=== PATIENT | male | born 1960 | race Caucasian/White ===

== ENCOUNTER 2017-04-29 07:09 | Inpatient (IN) | payer OTHER ==
[~2017-04-29] VITALS: Ht 188 cm; Wt 94.0 kg
[2017-04-29] MEDS ORDERED: SODIUM CHLORIDE 0.9% 1,000ML IVBOLUS ONE ×2 (08:00→12:00)
[2017-04-29] MEDS ORDERED: SODIUM CHLORIDE FLUSH 10ML SYR IVF ONE (08:00)
[2017-04-29] MEDS ORDERED: ONDANSETRON 2MG/ML, 2ML IVPush ONE (08:00)
[2017-04-29] MEDS ORDERED: ONDANSETRON 2MG/ML, 2ML ONE (08:15)
[2017-04-29] MEDS ORDERED: HYDROmorphone 1 MG/ML, 1ML ONE ×3 (08:15→10:36)
[2017-04-29] MEDS: HYDROmorphone 1 MG/ML, 1ML IVPush PRN ×2 (08:22→08:49)
[2017-04-29 08:30] LABS: ASPARTATE AMINO TRANSFERASE 12 U/L (15-37); BLOOD UREA NITROGEN 32 mg/dL (7-18)
[2017-04-29 08:37] LABS: DIFF TOTAL CELLS COUNTED 100 CELL DIFF
[2017-04-29 08:39] LABS: VERIFY COUNTS? YES
[2017-04-29] MEDS ORDERED: HYDROmorphone 1 MG/ML, 1ML IV ONE (11:00)
[2017-04-29] MEDS ORDERED: OMNIPAQUE 350 MG/ML, 100ML BOTTLE ONE (11:01)
[2017-04-29] MEDS ORDERED: INSU100C SQ-INSULIN ×2 (11:38)
[2017-04-29] MEDS ORDERED: CHOL400T2 PO (11:38)
[2017-04-29] MEDS ORDERED: HYDR25TA6 PO (11:38)
[2017-04-29] MEDS ORDERED: LOSA100T6 PO (11:38)
[2017-04-29] MEDS ORDERED: EMPA25TA PO (11:38)
[2017-04-29] MEDS ORDERED: INSU100I32 SQ (11:38)
[2017-04-29] MEDS ORDERED: ROSU20TA PO (11:38)
[2017-04-29] MEDS ORDERED: PIPERACILLIN/TAZO/PMX 4.5GM 100 ML IVPB ONE (12:00)
[2017-04-29] MEDS ORDERED: VANCOMYCIN PER PHARMACY MC ONE (12:00)
[2017-04-29] MEDS ORDERED: VANCOMYCIN 2,000 MG in SODIUM CHLORIDE 0.9% 500 ML IV ONE (12:30)
[2017-04-29] MEDS ORDERED: SODIUM CHLORIDE 0.9% 1,000 ML IV SCH (12:41)
[2017-04-29] MEDS ORDERED: morphine SULFATE 10 MG/ML, 1ML IVPush PRN (13:00)
[2017-04-29] MEDS ORDERED: ONDANSETRON 2MG/ML, 2ML IVPush PRN ×2 (13:00→13:51)
[2017-04-29] MEDS ORDERED: PROMETHAZINE 25 MG/ML, 1ML IM PRN (13:00)
[2017-04-29] MEDS: INSULIN ASPART 100 UNITS/ML, PEN SQ-INSULIN SCH ×3 (13:00→21:36)
[2017-04-29] MEDS ORDERED: PHARMACY MAY ADJ FOR RENAL FX MC PRN (13:00)
[2017-04-29 13:10] VITALS: BP 101/57
[2017-04-29] MEDS ORDERED: ERTAPENEM 1 GM in SODIUM CHLORIDE 0.9% 50 ML IV SCH (13:30)
[2017-04-29] MEDS ORDERED: LIDOCAINE 2%, 20ML ONE (13:47)
[2017-04-29] MEDS: SODIUM CHLORIDE 0.45% 1,000 ML IV SCH ×2 (14:00→15:37)
[2017-04-29] MEDS ORDERED: MIDAZOLAM 1 MG/ML, 5ML ONE (14:01)
[2017-04-29] MEDS ORDERED: NALOXONE 1 MG/ML, 2ML ONE (14:02)
[2017-04-29] MEDS ORDERED: FENTANYL PF 100 MCG/2ML ONE (14:02)
[2017-04-29] MEDS ORDERED: FLUMAZENIL 0.1 MG/1 ML, 5ML ONE (14:02)
[2017-04-29] MEDS: morphine SULFATE 10 MG/ML, 1ML IVPush PRN (18:23)
[2017-04-29 20:30] VITALS: BP 101/55
[2017-04-29] MEDS ORDERED: INSULIN DETEMIR 100 UNITS/ML, PEN SQ-INSULIN SCH (21:00)
[2017-04-29] MEDS: PIPERACILLIN/TAZO 3.375 GM in SODIUM CHLORIDE 0.9% 100 ML IV SCH (21:09)
[2017-04-29] MEDS: D5%-0.45NACL+KCL 20MEQ 1,000 ML IV SCH (21:11)
[2017-04-30] MEDS: PIPERACILLIN/TAZO 3.375 GM in SODIUM CHLORIDE 0.9% 100 ML IV SCH ×2 (01:50→07:30)
[2017-04-30] MEDS: OXYcodone/APAP 7.5/325MG TABLET PO PRN ×2 (01:53→05:52)
[2017-04-30 02:35] VITALS: BP 101/57
[2017-04-30 05:10] LABS: ASPARTATE AMINO TRANSFERASE 15 U/L (15-37); BLOOD UREA NITROGEN 40 mg/dL (7-18)
[2017-04-30] MEDS: D5%-0.45NACL+KCL 20MEQ 1,000 ML IV SCH (05:52)
[2017-04-30] MEDS: SODIUM CHLORIDE 0.45% 1,000 ML IV SCH ×3 (05:57→14:43)
[2017-04-30] MEDS: INSULIN ASPART 100 UNITS/ML, PEN SQ-INSULIN SCH ×5 (07:41→21:00)
[2017-04-30] MEDS: INSULIN DETEMIR 100 UNITS/ML, PEN SQ-INSULIN SCH ×2 (08:22→21:03)
[2017-04-30 08:24] VITALS: BP 100/64
[2017-04-30] MEDS ORDERED: ERTAPENEM 1 GM in SODIUM CHLORIDE 0.9% 100 ML IV SCH (11:00)
[2017-04-30] MEDS ORDERED: ERTAPENEM 1 GM in SODIUM CHLORIDE 0.9% 50 ML IV SCH (12:00)
[2017-04-30 12:17] LABS: BLOOD UREA NITROGEN 42 mg/dL (7-18)
[2017-04-30] MEDS ORDERED: SODIUM CHLORIDE 0.45% 1,000 ML IV SCH (14:00)
[2017-04-30 14:51] VITALS: BP 104/51
[2017-04-30 15:37] VITALS: BP 93/50
[2017-04-30] MEDS ORDERED: SODIUM CHLORIDE 0.9% 1,000ML IVBOLUS ONE ×2 (16:00→18:30)
[2017-04-30 19:35] VITALS: BP 109/59
[2017-04-30 23:58] VITALS: BP 125/68
[2017-05-01] MEDS: HEPARIN 5,000 UNITS/ML, 1ML SQ SCH ×4 (00:13→22:00)
[2017-05-01] MEDS: SODIUM CHLORIDE 0.45% 1,000 ML IV SCH ×3 (00:14→11:51)
[2017-05-01 04:02] VITALS: BP 121/71
[2017-05-01 06:35] LABS: BLOOD UREA NITROGEN 44 mg/dL (7-18)
[2017-05-01] MEDS: INSULIN ASPART 100 UNITS/ML, PEN SQ-INSULIN SCH ×5 (06:35→21:39)
[2017-05-01 06:51] LABS: ASPARTATE AMINO TRANSFERASE 26 U/L (15-37)
[2017-05-01 07:57] VITALS: BP 137/70
[2017-05-01] MEDS: morphine SULFATE 10 MG/ML, 1ML IVPush PRN ×2 (08:04→17:19)
[2017-05-01] MEDS: INSULIN DETEMIR 100 UNITS/ML, PEN SQ-INSULIN SCH ×2 (09:00→21:33)
[2017-05-01] MEDS ORDERED: ERTAPENEM 0.5 GM in SODIUM CHLORIDE 0.9% 100 ML IV SCH (11:12)
[2017-05-01 12:14] LABS: BLOOD UREA NITROGEN 47 mg/dL (7-18)
[2017-05-01] MEDS ORDERED: PIPERACILLIN/TAZO 2.25 GM in SODIUM CHLORIDE 0.9% 50 ML IV SCH (12:30)
[2017-05-01] MEDS ORDERED: PIPERACILLIN/TAZO 0.75 GM in SODIUM CHLORIDE 0.9% 50 ML IV SCH (12:30)
[2017-05-01 12:45] VITALS: BP 129/66
[2017-05-01] MEDS ORDERED: BUPIVACAINE/PF-EPI 0.5% 1:200K ONE ×2 (13:43→15:27)
[2017-05-01] MEDS ORDERED: HEPARIN 1,000 UNITS/ML, 10ML ONE (13:43)
[2017-05-01] MEDS ORDERED: MIDAZOLAM 1 MG/ML, 2ML ONE (13:57)
[2017-05-01] MEDS ORDERED: FENTANYL PF 250 MCG/5ML ONE (13:57)
[2017-05-01] MEDS ORDERED: ROCURONIUM 10 MG/ML ONE (14:08)
[2017-05-01] MEDS ORDERED: PROPOFOL 10 MG/ML, 20ML ONE (14:08)
[2017-05-01] MEDS ORDERED: GLYCOPYRROLATE 0.2MG/1ML ONE (14:08)
[2017-05-01] MEDS ORDERED: NEOSTIGMINE 1 MG/ML, 10ML ONE (14:08)
[2017-05-01] MEDS ORDERED: ONDANSETRON 2MG/ML, 2ML ONE (14:08)
[2017-05-01] MEDS ORDERED: HYDROmorphone 1 MG/ML, 1ML ONE (14:57)
[2017-05-01] MEDS ORDERED: BACITRACIN 50,000 UNIT ONE (15:11)
[2017-05-01] MEDS ORDERED: MIDAZOLAM 1 MG/ML, 2ML IV PRN (16:00)
[2017-05-01] MEDS ORDERED: EPHEDRINE 50 MG/ML, 1ML IVPush PRN (16:00)
[2017-05-01] MEDS ORDERED: FENTANYL PF 100 MCG/2ML IV PRN (16:00)
[2017-05-01] MEDS ORDERED: HYDROmorphone 1 MG/ML, 1ML IV PRN (16:00)
[2017-05-01] MEDS ORDERED: ONDANSETRON 2MG/ML, 2ML IVPush PRN (16:00)
[2017-05-01] MEDS ORDERED: OXYcodone 5 MG/5 ML ORAL.SOL UDC PO PRN (16:00)
[2017-05-01] MEDS ORDERED: BUPIVACAINE/PF-EPI 0.5% 1:200K INFIL ONE (16:28)
[2017-05-01] MEDS ORDERED: BACITRACIN 50,000 UNIT IRRIG ONE (16:29)
[2017-05-01] MEDS ORDERED: ENOXAPARIN 30 MG/0.3 ML SQ SCH (18:00)
[2017-05-01] MEDS: D5%-0.45% NACL 1,000 ML IV SCH (18:09)
[2017-05-01] MEDS ORDERED: LORazepam 2 MG/ML, 1ML IV PRN ×2 (18:30)
[2017-05-01] MEDS ORDERED: D5%-0.45% NACL 1,000 ML IV SCH (18:30)
[2017-05-01] MEDS ORDERED: morphine SULFATE 10 MG/ML, 1ML IV PRN (18:30)
[2017-05-01] MEDS ORDERED: LORazepam 1MG TABLET PO PRN (18:30)
[2017-05-01] MEDS ORDERED: ACETAMINOPHEN 650 MG SUPP PR PRN (21:00)
[2017-05-01] MEDS: PIPERACILLIN/TAZO/PMX 2.25GM 50 ML IV SCH ×2 (21:37→23:12)
[2017-05-01] MEDS: FLUCONAZOLE 400 MG/200 ML 200 ML IV SCH (21:37)
[2017-05-02] MEDS: D5%-0.45% NACL 1,000 ML IV SCH (04:07)
[2017-05-02 04:48] LABS: BLOOD UREA NITROGEN 55 mg/dL (7-18)
[2017-05-02 04:54] LABS: TOTAL IRON BINDING CAPACITY 145 mcg/dL (250-450)
[2017-05-02 04:55] LABS: ASPARTATE AMINO TRANSFERASE 16 U/L (15-37)
[2017-05-02 05:00] VITALS: BP 122/60
[2017-05-02 05:37] LABS: DIFF TOTAL CELLS COUNTED 100 CELL DIFF
[2017-05-02 05:39] LABS: VERIFY COUNTS? YES
[2017-05-02] MEDS: PIPERACILLIN/TAZO/PMX 2.25GM 50 ML IV SCH ×3 (05:42→17:45)
[2017-05-02] MEDS: HEPARIN 5,000 UNITS/ML, 1ML SQ SCH (06:11)
[2017-05-02] MEDS: INSULIN ASPART 100 UNITS/ML, PEN SQ-INSULIN SCH ×4 (06:17→21:00)
[2017-05-02] MEDS ORDERED: SODIUM CHLORIDE 0.9%, 500ML IVBOLUS PRN (08:30)
[2017-05-02] MEDS ORDERED: SODIUM CHLORIDE 0.9% 1,000 ML IV SCH (08:30)
[2017-05-02] MEDS ORDERED: ENOXAPARIN 30 MG/0.3 ML SQ SCH (09:00)
[2017-05-02] MEDS: ALBUMIN HUMAN 25% 100 ML IV SCH ×3 (09:45→20:31)
[2017-05-02] MEDS: INSULIN DETEMIR 100 UNITS/ML, PEN SQ-INSULIN SCH ×2 (09:55→21:34)
[2017-05-02] MEDS: ENOXAPARIN 30 MG/0.3 ML SQ SCH (10:10)
[2017-05-02 13:24] LABS: POTASSIUM,URINE RANDOM 39 mmol/L
[2017-05-03] MEDS: PIPERACILLIN/TAZO/PMX 2.25GM 50 ML IV SCH ×4 (00:13→18:35)
[2017-05-03] MEDS: ALBUMIN HUMAN 25% 100 ML IV SCH (03:09)
[2017-05-03 05:00] VITALS: BP 142/64
[2017-05-03 05:02] LABS: ASPARTATE AMINO TRANSFERASE 21 U/L (15-37); BLOOD UREA NITROGEN 40 mg/dL (7-18)
[2017-05-03] MEDS: INSULIN ASPART 100 UNITS/ML, PEN SQ-INSULIN SCH ×4 (07:00→20:34)
[2017-05-03] MEDS: INSULIN DETEMIR 100 UNITS/ML, PEN SQ-INSULIN SCH ×2 (09:26→20:46)
[2017-05-03] MEDS: ENOXAPARIN 30 MG/0.3 ML SQ SCH (09:26)
[2017-05-03 09:36] LABS: HEP B SURF. AB < 3.1 mIU/mL (0.0-10.0)
[2017-05-03] MEDS ORDERED: ALBUMIN HUMAN 25% 100 ML IV ONE (10:30)
[2017-05-03 14:04] VITALS: BP 163/83
[2017-05-03] MEDS: FLUCONAZOLE 400 MG/200 ML 200 ML IV SCH (16:40)
[2017-05-03 20:16] VITALS: BP 157/78
[2017-05-04] MEDS: PIPERACILLIN/TAZO/PMX 2.25GM 50 ML IV SCH ×3 (02:18→12:18)
[2017-05-04 03:08] VITALS: BP 168/89
[2017-05-04] MEDS: ENOXAPARIN 30 MG/0.3 ML SQ SCH (06:35)
[2017-05-04] MEDS: INSULIN ASPART 100 UNITS/ML, PEN SQ-INSULIN SCH ×5 (07:00→21:08)
[2017-05-04 07:48] VITALS: BP 154/78
[2017-05-04] MEDS: INSULIN DETEMIR 100 UNITS/ML, PEN SQ-INSULIN SCH ×2 (08:30→21:08)
[2017-05-04] MEDS ORDERED: BISACODYL 10 MG SUPP PR ONE (10:00)
[2017-05-04] MEDS ORDERED: ZOLPIDEM 5MG TABLET PO PRN (10:00)
[2017-05-04 10:41] LABS: BLOOD UREA NITROGEN 39 mg/dL (7-18)
[2017-05-04 10:45] LABS: ASPARTATE AMINO TRANSFERASE 20 U/L (15-37)
[2017-05-04] MEDS: METOCLOPRAMIDE 5 MG/ML, 2ML IV SCH ×2 (11:52→17:36)
[2017-05-04 13:54] VITALS: BP 129/71
[2017-05-04] MEDS ORDERED: SODIUM CHLORIDE 0.9% 1,000 ML IV SCH (14:30)
[2017-05-04] MEDS ORDERED: ONDANSETRON 2MG/ML, 2ML IVPush PRN (14:30)
[2017-05-04] MEDS ORDERED: PROMETHAZINE 25 MG/ML, 1ML IM PRN (14:30)
[2017-05-04] MEDS ORDERED: morphine SULFATE 10 MG/ML, 1ML IV PRN (14:30)
[2017-05-04] MEDS ORDERED: SODIUM CHLORIDE 0.9%, 500ML IVBOLUS PRN (14:30)
[2017-05-04 17:35] VITALS: BP 153/74
[2017-05-04] MEDS: CARVEDILOL 3.125 MG TABLET PO SCH (17:36)
[2017-05-04] MEDS: PIPERACILLIN/TAZO 2.25 GM in SODIUM CHLORIDE 0.9% 100 ML IV SCH (18:11)
[2017-05-04] MEDS: ATORVASTATIN 40 MG TABLET PO SCH (21:03)
[2017-05-04 21:30] VITALS: BP 162/76
[2017-05-05] MEDS: METOCLOPRAMIDE 5 MG/ML, 2ML IV SCH ×3 (00:36→20:00)
[2017-05-05] MEDS: PIPERACILLIN/TAZO 2.25 GM in SODIUM CHLORIDE 0.9% 100 ML IV SCH ×4 (00:36→20:00)
[2017-05-05 02:32] VITALS: BP 145/91
[2017-05-05] MEDS: CARVEDILOL 3.125 MG TABLET PO SCH ×2 (06:00→17:40)
[2017-05-05 06:53] LABS: BLOOD UREA NITROGEN 46 mg/dL (7-18)
[2017-05-05 06:57] LABS: ASPARTATE AMINO TRANSFERASE 18 U/L (15-37)
[2017-05-05] MEDS: INSULIN ASPART 100 UNITS/ML, PEN SQ-INSULIN SCH ×4 (07:00→21:09)
[2017-05-05] MEDS: INSULIN DETEMIR 100 UNITS/ML, PEN SQ-INSULIN SCH ×2 (08:10→21:09)
[2017-05-05] MEDS: ENOXAPARIN 30 MG/0.3 ML SQ SCH (08:10)
[2017-05-05] MEDS: FLUCONAZOLE 400 MG/200 ML 200 ML IV SCH (16:02)
[2017-05-05] MEDS: ATORVASTATIN 40 MG TABLET PO SCH (20:00)
[2017-05-06] MEDS: PIPERACILLIN/TAZO 2.25 GM in SODIUM CHLORIDE 0.9% 100 ML IV SCH ×5 (02:20→22:07)
[2017-05-06] MEDS: METOCLOPRAMIDE 5 MG/ML, 2ML IV SCH ×5 (02:20→20:08)
[2017-05-06] MEDS: CARVEDILOL 3.125 MG TABLET PO SCH ×2 (05:58→20:08)
[2017-05-06] MEDS: INSULIN ASPART 100 UNITS/ML, PEN SQ-INSULIN SCH ×4 (07:00→22:14)
[2017-05-06] MEDS: ENOXAPARIN 30 MG/0.3 ML SQ SCH (09:00)
[2017-05-06] MEDS: INSULIN DETEMIR 100 UNITS/ML, PEN SQ-INSULIN SCH ×2 (09:00→22:14)
[2017-05-06 13:45] VITALS: BP 152/71
[2017-05-06 20:00] VITALS: BP 161/64
[2017-05-06] MEDS: ATORVASTATIN 40 MG TABLET PO SCH (22:07)
[2017-05-07] MEDS: METOCLOPRAMIDE 5 MG/ML, 2ML IV SCH ×4 (02:44→20:50)
[2017-05-07] MEDS: PIPERACILLIN/TAZO 2.25 GM in SODIUM CHLORIDE 0.9% 100 ML IV SCH ×4 (02:45→20:50)
[2017-05-07 02:49] VITALS: BP 157/69
[2017-05-07 05:35] LABS: BLOOD UREA NITROGEN 24 mg/dL (7-18)
[2017-05-07] MEDS: CARVEDILOL 3.125 MG TABLET PO SCH (06:19)
[2017-05-07] MEDS: INSULIN ASPART 100 UNITS/ML, PEN SQ-INSULIN SCH ×4 (06:22→21:23)
[2017-05-07 07:29] VITALS: BP 167/77
[2017-05-07] MEDS: INSULIN DETEMIR 100 UNITS/ML, PEN SQ-INSULIN SCH ×2 (09:06→20:51)
[2017-05-07] MEDS ORDERED: CARVEDILOL 3.125 MG TABLET PO ONE (11:30)
[2017-05-07 13:04] VITALS: BP 154/71
[2017-05-07] MEDS: FLUCONAZOLE 400 MG/200 ML 200 ML IV SCH (16:57)
[2017-05-07] MEDS: CARVEDILOL 6.25 MG TABLET PO SCH (17:44)
[2017-05-07] MEDS: ENOXAPARIN 40 MG/0.4 ML SQ SCH (17:44)
[2017-05-07 19:54] VITALS: BP 160/78
[2017-05-07] MEDS: ATORVASTATIN 40 MG TABLET PO SCH (20:50)
[2017-05-07] MEDS: OXYcodone/APAP 7.5/325MG TABLET PO PRN (21:22)
[2017-05-08] MEDS: METOCLOPRAMIDE 5 MG/ML, 2ML IV SCH ×4 (02:59→22:24)
[2017-05-08 03:00] VITALS: BP 162/77
[2017-05-08] MEDS: PIPERACILLIN/TAZO/PMX 2.25GM 50 ML IV SCH ×4 (03:00→22:24)
[2017-05-08 06:23] LABS: BLOOD UREA NITROGEN 15 mg/dL (7-18)
[2017-05-08 06:43] VITALS: BP 159/78
[2017-05-08] MEDS: INSULIN ASPART 100 UNITS/ML, PEN SQ-INSULIN SCH ×3 (07:00→15:49)
[2017-05-08] MEDS: CARVEDILOL 6.25 MG TABLET PO SCH ×2 (07:33→17:42)
[2017-05-08] MEDS: INSULIN DETEMIR 100 UNITS/ML, PEN SQ-INSULIN SCH (09:06)
[2017-05-08 13:29] VITALS: BP 150/70
[2017-05-08] MEDS: ENOXAPARIN 40 MG/0.4 ML SQ SCH (17:42)
[2017-05-08 18:49] VITALS: BP 171/79
[2017-05-08] MEDS: ATORVASTATIN 40 MG TABLET PO SCH (22:24)
[2017-05-09] MEDS: INSULIN DETEMIR 100 UNITS/ML, PEN SQ-INSULIN SCH ×3 (00:07→21:59)
[2017-05-09] MEDS: INSULIN ASPART 100 UNITS/ML, PEN SQ-INSULIN SCH ×5 (00:07→21:59)
[2017-05-09] MEDS: OXYcodone/APAP 7.5/325MG TABLET PO PRN (00:08)
[2017-05-09 03:00] VITALS: BP 161/87
[2017-05-09] MEDS: PIPERACILLIN/TAZO/PMX 2.25GM 50 ML IV SCH ×2 (03:30→10:47)
[2017-05-09] MEDS: METOCLOPRAMIDE 5 MG/ML, 2ML IV SCH ×4 (03:33→21:53)
[2017-05-09 05:17] LABS: BLOOD UREA NITROGEN 13 mg/dL (7-18)
[2017-05-09] MEDS: CARVEDILOL 6.25 MG TABLET PO SCH ×2 (06:12→16:36)
[2017-05-09 08:15] VITALS: BP 129/75
[2017-05-09] MEDS: ERTAPENEM 1 GM in SODIUM CHLORIDE 0.9% 100 ML IV SCH (14:48)
[2017-05-09] MEDS ORDERED: ERTAPENEM 1 GM in SODIUM CHLORIDE 0.9% 50 ML IV SCH (15:00)
[2017-05-09] MEDS ORDERED: FLUCONAZOLE 400 MG/200 ML 200 ML IV SCH (15:30)
[2017-05-09 15:45] VITALS: BP 171/71
[2017-05-09] MEDS ORDERED: PIPERACILLIN/TAZO/PMX 3.375GM 50 ML IV SCH (16:00)
[2017-05-09 17:15] VITALS: BP 160/83
[2017-05-09] MEDS: ENOXAPARIN 40 MG/0.4 ML SQ SCH (17:16)
[2017-05-09 21:10] VITALS: BP 176/78
[2017-05-09] MEDS: ATORVASTATIN 40 MG TABLET PO SCH (21:53)
[2017-05-10] MEDS ORDERED: OMNIPAQUE 350 MG/ML, 100ML BOTTLE ONE (02:33)
[2017-05-10] MEDS: METOCLOPRAMIDE 5 MG/ML, 2ML IV SCH ×3 (03:15→15:28)
[2017-05-10 03:36] VITALS: BP 171/81
[2017-05-10 05:45] LABS: BLOOD UREA NITROGEN 9 mg/dL (7-18)
[2017-05-10] MEDS: CARVEDILOL 6.25 MG TABLET PO SCH ×2 (06:27→16:40)
[2017-05-10] MEDS: INSULIN ASPART 100 UNITS/ML, PEN SQ-INSULIN SCH ×3 (06:27→16:38)
[2017-05-10] MEDS ORDERED: MAGNESIUM SULFATE PMX 2GM/50ML 50 ML IV ONE (07:30)
[2017-05-10 08:10] VITALS: BP 159/77
[2017-05-10] MEDS: INSULIN DETEMIR 100 UNITS/ML, PEN SQ-INSULIN SCH (09:19)
[2017-05-10] MEDS ORDERED: FLUCONAZOLE 200 MG TABLET PO SCH (13:00)
[2017-05-10 14:16] VITALS: BP 159/70
[2017-05-10] MEDS ORDERED: FLUC200T PO (14:56)
[2017-05-10] MEDS: ERTAPENEM 1 GM in SODIUM CHLORIDE 0.9% 100 ML IV SCH (15:54)
[2017-05-10 17:02] VITALS: BP 162/73
[2017-05-11] MEDS ORDERED: ACETYLCYSTEINE 600 MG CAPSULE PO SCH ×2 (07:00)
[2017-05-12] MEDS ORDERED: SODIUM BICARBONATE 8.4% 150 MEQ in DEXTROSE 5% 1,000 ML IV SCH (06:00)
== END 2017-05-10 17:05 | disposition home or self-care (01) | DRG 853 ==
LOC: ED 11:43 → EDIP 11:44 → ED 11:56 → 4NOR 12:53 → CCU 05-01 17:07 → 4NOR 05-03 13:47
PROC: 0W9G30Z Drainage of Peritoneal Cavity with Drainage Device, Percutaneous Approach (ICD-10-PCS; principal; 2017-04-29)
PROC: 0WQF0ZZ Repair Abdominal Wall, Open Approach (ICD-10-PCS; 2017-05-01)
PROC: 02HV33Z Insertion of Infusion Device into Superior Vena Cava, Percutaneous Approach (ICD-10-PCS; 2017-05-01)
PROC: 0DTJ0ZZ Resection of Appendix, Open Approach (ICD-10-PCS; 2017-05-01 14:00)
PROC: 5A1D60Z (ICD-10-PCS; 2017-05-02)
PROC: 0T9B70Z Drainage of Bladder with Drainage Device, Via Natural or Artificial Opening (ICD-10-PCS; 2017-05-02)
PROC: 02HV33Z Insertion of Infusion Device into Superior Vena Cava, Percutaneous Approach (ICD-10-PCS; 2017-05-10)
PROC: B5181ZA Fluoroscopy of Superior Vena Cava using Low Osmolar Contrast, Guidance (ICD-10-PCS; 2017-05-10)
PROC: B548ZZA Ultrasonography of Superior Vena Cava, Guidance (ICD-10-PCS; 2017-05-10)
DX: A41.9 Sepsis, unspecified organism (principal); K35.3 Acute appendicitis with localized peritonitis; N17.0 Acute kidney failure with tubular necrosis; E43 Unspecified severe protein-calorie malnutrition; E87.1 Hypo-osmolality and hyponatremia; K42.0 Umbilical hernia with obstruction, without gangrene; K66.8 Other specified disorders of peritoneum; E11.65 Type 2 diabetes mellitus with hyperglycemia; E78.5 Hyperlipidemia, unspecified; R65.20 Severe sepsis without septic shock; E83.51 Hypocalcemia; E87.5 Hyperkalemia; E11.22 Type 2 diabetes mellitus with diabetic chronic kidney disease; I12.9 Hypertensive chronic kidney disease with stage 1 through stage 4 chronic kidney disease, or unspecified chronic kidney disease; N18.3 Chronic kidney disease, stage 3 (moderate); D63.1 Anemia in chronic kidney disease; E87.70 Fluid overload, unspecified; N14.1 Nephropathy induced by other drugs, medicaments and biological substances; T50.8X5A Adverse effect of diagnostic agents, initial encounter; Z82.49 Family history of ischemic heart disease and other diseases of the circulatory system; Z79.4 Long term (current) use of insulin; Z79.899 Other long term (current) drug therapy; Z72.0 Tobacco use; Z99.2 Dependence on renal dialysis; Z68.26 Body mass index [BMI] 26.0-26.9, adult
CPT/HCPCS: 36415; 36569; 49405; 71010; 74176; 74177; 76770; 76937; 77001; 80048; 80053; 80069; 81001; 82010; 82150; 82306; 82330; 82436; 82570; 82728; 82962; 83036; 83540; 83550; 83605; 83690; 83735; 83970; 84100; 84133; 84145; 84300; 84550; 85025; 86704; 86706; 87015; 87040; 87070; 87075; 87077; 87081; 87086; 87102; 87116; 87186; 87205; 87206; 87324; 87340; 88304; 93005; 96361; 96374; 96375; 96376; 99156; 99157; J1170; J1335; J1450; J1644; J1650; J1815; J2250; J2405; J2543; J2704; J2710; J3010; J3370; J3490; P9047; Q9967; C1729; C1750; C1751; C1765; J2270; J2310; J2765; J3475; J3480; J7030; J7040

== ENCOUNTER 2018-04-26 21:37 | Emergency (ER) | payer OTHER ==
[~2018-04-26] VITALS: Ht 188 cm; Wt 103.6 kg
[~2018-04-26 21:37] MED LIST: CHOL400T2 PO; EMPA25TA PO; FLUC200T PO; HYDR25TA6 PO; INSU100C SQ-INSULIN; INSU100I32 SQ; LOSA100T6 PO; ROSU20TA PO
[2018-04-26] MEDS ORDERED: LORazepam 1MG TABLET PO ONE (22:00)
[2018-04-26] MEDS ORDERED: LORazepam 1MG TABLET ONE (22:01)
[2018-04-26 22:14] LABS: BASOPHILS # (AUTO) 0.11 x10^3/uL (0-0.1); BASOPHILS % (AUTO) 1 % (0-1); EOSINOPHILS # (AUTO) 0.24 x10^3/uL (0-0.4); EOSINOPHILS % (AUTO) 2 % (1-7); LYMPHOCYTES # (AUTO) 1.97 x10^3/uL (1-3.4); LYMPHOCYTES % (AUTO) 19 % (22-44); MD NO; MEAN CORPUSCULAR HEMOGLOBIN 28.8 pg (27.5-34.5); MEAN CORPUSCULAR HGB CONC 33.3 g/dL (33.2-36.2); MEAN CORPUSCULAR VOLUME 86.6 fL (81-97); MEAN PLATELET VOLUME 8.8 fL (7.4-10.4); MONOCYTES # (AUTO) 0.77 x10^3/uL (0.2-0.8); MONOCYTES % (AUTO) 8 % (2-9); NEUTROPHILS # (AUTO) 7.08 x10^3/uL (1.8-6.8); NEUTROPHILS % (AUTO) 70 % (42-75); PLATELET COUNT 313 x10^3/uL (130-400); RED BLOOD COUNT 5.07 x10^6/uL (4.38-5.82); RED CELL DISTRIBUTION WIDTH 13.8 % (9.4-14.8)
[2018-04-26 22:26] LABS: ANION GAP 10 mmol/L (5-15); CALCIUM 9.3 mg/dL (8.5-10.1); CHLORIDE 105 mmol/L (98-107); CREATININE 1.15 mg/dL (0.7-1.3)
[2018-04-26 23:05] VITALS: BP 163/81
== END 2018-04-26 23:34 | disposition home or self-care (01) ==
LOC: ED 23:30
DX: I10 Essential (primary) hypertension (principal); E11.9 Type 2 diabetes mellitus without complications; F41.9 Anxiety disorder, unspecified
CPT/HCPCS: 36415; 80048; 82040; 85025; 93005; 99285

== ENCOUNTER → 2018-06-23 | Outpatient (CLI) | payer OTHER ==
[~2018-06-23] MED LIST changes: +CETI10CA PO; +CHOL500045 PO; +LOSA25TA5 PO; +MULT-717 PO
== END ==
LOC: STAR 09:03
PROVIDERS: ATTEND Thoracic Surgery (Cardiothoracic Vascular Surgery)
DX: Z02.9 Encounter for administrative examinations, unspecified (principal)

== ENCOUNTER 2018-07-14 12:53 | Day surgery (SDC) | payer OTHER ==
[2018-06-23 09:36] VITALS: BP 105/79
[~2018-07-14] VITALS: Ht 188 cm; Wt 99.7 kg
[2018-07-14] MEDS ORDERED: LACTATED RINGERS 1,000 ML IV SCH ×2 (13:08→16:51)
[2018-07-14 13:11] VITALS: BP 105/79
[2018-07-14] MEDS ORDERED: LIDOCAINE-MPF 1%, 2ML INFIL ONE (13:30)
[2018-07-14] MEDS ORDERED: EPINEPHRINE 1 MG/ML, 1ML ONE (14:19)
[2018-07-14] MEDS ORDERED: BUPIVACAINE/PF 0.5% ONE (14:19)
[2018-07-14] MEDS ORDERED: MIDAZOLAM 1 MG/ML, 2ML ONE (15:01)
[2018-07-14] MEDS ORDERED: SUCCINYLCHOLINE 20 MG/ML, 10ML ONE (15:02)
[2018-07-14] MEDS ORDERED: GLYCOPYRROLATE 0.2MG/1ML, 5ML ONE (15:02)
[2018-07-14] MEDS ORDERED: ONDANSETRON 2MG/ML, 2ML ONE (15:02)
[2018-07-14] MEDS ORDERED: CEFAZOLIN 1,000 MG ONE (15:02)
[2018-07-14] MEDS ORDERED: NEOSTIGMINE 1 MG/ML, 10ML ONE (15:02)
[2018-07-14] MEDS ORDERED: PROPOFOL 10 MG/ML, 20ML ONE (15:02)
[2018-07-14] MEDS ORDERED: ROCURONIUM 10 MG/ML,10ML ONE (15:02)
[2018-07-14] MEDS ORDERED: BUPIVACAINE/PF-EPI 0.5% 1:200K IM ONE (15:45)
[2018-07-14] MEDS ORDERED: FENTANYL PF 250 MCG/5ML ONE (15:51)
[2018-07-14] MEDS ORDERED: OXYcodone 5 MG/5 ML ORAL.SOL UDC PO PRN (17:00)
[2018-07-14] MEDS ORDERED: ONDANSETRON 2MG/ML, 2ML IVPush PRN ×2 (17:00)
[2018-07-14] MEDS ORDERED: ALBUTEROL SULFATE 2.5 MG/3 ML NPPB PRN (17:00)
[2018-07-14] MEDS ORDERED: KETOROLAC 30 MG/1 ML IV PRN (17:00)
[2018-07-14] MEDS ORDERED: MEPERIDINE/PF 25MG/0.5ML IVPush PRN (17:00)
[2018-07-14] MEDS ORDERED: hydrALAzine 20 MG/ML, 1ML IV PRN (17:00)
[2018-07-14] MEDS ORDERED: HYDROmorphone 1 MG/ML, 1ML IV PRN (17:00)
[2018-07-14] MEDS ORDERED: METOCLOPRAMIDE 5 MG/ML, 2ML IV PRN (17:00)
[2018-07-14] MEDS ORDERED: HYDROcodone/APAP 5/325 TABLET PO PRN (17:00)
[2018-07-14] MEDS ORDERED: KETOROLAC 30 MG/1 ML IVPush PRN (17:00)
[2018-07-14] MEDS ORDERED: morphine SULFATE 10 MG/ML, 1ML IVPush PRN (17:00)
[2018-07-14] MEDS ORDERED: PROMETHAZINE 25 MG/ML, 1ML IV PRN (17:00)
[2018-07-14] MEDS ORDERED: OXYcodone 5 MG/5 ML ORAL.SOL UDC ONE (17:09)
[2018-07-14] MEDS ORDERED: FENTANYL PF 100 MCG/2ML ONE (17:09)
[2018-07-14] MEDS: FENTANYL PF 100 MCG/2ML IV PRN ×2 (17:14→17:33)
[2018-07-14] MEDS ORDERED: KETOROLAC 30 MG/1 ML ONE (17:15)
[2018-07-14] MEDS ORDERED: LABETALOL 5MG/ML, 20ML ONE (17:23)
[2018-07-14] MEDS: LABETALOL 5MG/ML, 20ML IV PRN ×2 (17:30→17:41)
== END 2018-07-14 20:45 | disposition home or self-care (01) ==
LOC: OUT 12:53 → 4NOR 17:51 → OUT 20:45
PROVIDERS: ATTEND Thoracic Surgery (Cardiothoracic Vascular Surgery)
DX: K43.2 Incisional hernia without obstruction or gangrene (principal); E11.40 Type 2 diabetes mellitus with diabetic neuropathy, unspecified; F17.210 Nicotine dependence, cigarettes, uncomplicated; Z98.890 Other specified postprocedural states; Z79.4 Long term (current) use of insulin; Z79.899 Other long term (current) drug therapy
CPT/HCPCS: 49654; 82962; C1781; J0171; J0330; J0690; J1885; J2250; J2405; J2704; J2710; J3010; J3490; J7120; S2900

== ENCOUNTER 2021-05-21 08:47 | Emergency (ER) | payer OTHER ==
[~2021-05-21] VITALS: Ht 188 cm; Wt 107.0 kg
[~2021-05-21 08:47] MED LIST changes: +LOSA100T14 PO; -LOSA100T6 PO; +LOSA25TA25 PO; -LOSA25TA5 PO; -ROSU20TA PO; +ROSU20TA2 PO
--- NOTE | 2021-05-21 10:03 | NUR ---
Pt to room from lobby, ambulatory with steady gait. Pt c/o bilat LE swelling, increasing redness up lower legs. Pt with hx DM, reports some recent medication changes. Pt able to change into gown and position self in bed for comfort independently. All safety measures observed.
[2021-05-21 10:56] LABS: BASOPHILS % (AUTO) 1 % (0-1); EOSINOPHILS % (AUTO) 3 % (1-7); LYMPHOCYTES % (AUTO) 10 % (22-44); MEAN CORPUSCULAR HEMOGLOBIN 29.4 pg (27.5-34.5); MEAN CORPUSCULAR HGB CONC 33.9 g/dL (33.2-36.2); MEAN PLATELET VOLUME 8.9 fL (7.4-10.4); MONOCYTES % (AUTO) 6 % (2-9); NEUTROPHILS % (AUTO) 81 % (42-75); PLATELET COUNT 277 x10^3/uL (130-400); RED BLOOD COUNT 5.39 x10^6/uL (4.38-5.82); RED CELL DISTRIBUTION WIDTH 13.9 % (9.4-14.8)
[2021-05-21] MEDS ORDERED: DIPHENHYDRAMINE 50 MG/ML, 1ML IM ONE (11:00)
[2021-05-21 11:09] LABS: ALANINE AMINOTRANSFERASE 57 U/L (12-78); ALBUMIN 3.9 g/dL (3.4-5.0); ANION GAP 8 mmol/L (5-15); CALCIUM 9.9 mg/dL (8.5-10.1); CHLORIDE 106 mmol/L (98-107)
[2021-05-21 11:13] LABS: ALKALINE PHOSPHATASE 144 U/L (45-117); BILIRUBIN,TOTAL 0.4 mg/dL (0.2-1.0); CREATININE 1.18 mg/dL (0.7-1.3); TOTAL PROTEIN 8.5 g/dL (6.4-8.2); TROPONIN I < 0.015 ng/mL (0.000-0.045)
[2021-05-21] MEDS ORDERED: DIPHENHYDRAMINE 50 MG/ML, 1ML ONE (11:17)
[2021-05-21 11:21] VITALS: BP 137/69
--- NOTE | 2021-05-21 11:23 | NUR ---
Pt medicated per MAR, denies other needs.
--- NOTE | 2021-05-21 11:42 | NUR ---
US tech at bedside to perform ordered studies.
--- NOTE | 2021-05-21 12:42 | NUR ---
Dr. Khalil at bedside to discuss POC.
[2021-05-21 13:47] LABS: HCT (SEDRATE) 46.7 % (39.2-51.8)
== END 2021-05-21 12:45 | disposition home or self-care (01) ==
LOC: ED 10:22
DX: R60.0 Localized edema (principal); L53.8 Other specified erythematous conditions; I10 Essential (primary) hypertension; E11.9 Type 2 diabetes mellitus without complications; R07.89 Other chest pain
CPT/HCPCS: 36415; 71045; 80053; 83880; 84484; 85025; 85651; 93005; 93970; 96372; 99285; J1200